=== PATIENT | male | born 2000 | race Caucasian/White ===

== ENCOUNTER 2022-05-28 02:07 | Emergency (ER) | payer BC, OTHER ==
[2022-06-02 13:18] VITALS: BP 131/72; PULSE 140
== END 2022-05-28 02:40 ==
LOC: JD.ED 02:07
DX: S00.01XA Abrasion of scalp, initial encounter (principal); V89.2XXA Person injured in unspecified motor-vehicle accident, traffic, initial encounter
CPT/HCPCS: 99283